=== PATIENT | female | born 1985 | race Caucasian/White ===

== ENCOUNTER 2016-11-24 11:45 | Observation (INO) | payer OTHER ==
--- NOTE | 2016-12-15 07:55 | PDGENHP ---
History and Physical History and Physical: Assessment and Plan: 1. Stress incontinence Sammie has symptomatic stage III prolapse, mostly involving her anterior compartment. She also suffers from stress urinary incontinence as well as menorrhagia from a likely fibroid uterus. I did not have time to perform a pelvic ultrasound today. She will schedule one in radiology next week. We, then wi'll discuss the results. We reviewed all conservative and surgical options. At the end of our discussion, she is interested in surgical correction. This will be a robotic-assisted hysterectomy, uterosacral ligament colpopexy, perineorrhaphy, transobturator sling, and cystoscopy. She also would benefit from a labiaplasty. 2. Intramural leiomyoma of uterus - US PELVIS W ENDOVAG AND DOPPLER; Future 3. Midline cystocele Subjective: Patient ID: Sammie Lindsey is a 31 y.o. female who presents to [facility] for incontinence. HPI Sammei Lindsey presents for a preoperaptive visit. She is scheduled for a robotic hysterectomy, uterosacral ligament colpopexy, mid urethral sling, perineorrhaphy, and labiaplasty. The risks, benefits, and alternatives were presented and informed consent was obtained. 40 minutes of this 40 minute appointment was spent counceling, reviewing the procedure in detail, and discussing the preoperative and postoperative instructions. Below is a copy of our prior visit note. Sammie is a 31-year-old, para [address] Reyna for urinary incontinence. Her first child was born by section. Her second was a vaginal . She developed urinary incontinence after her first delivery which slowly improved after several months. However, after the vaginal , she has continued to leak. Her youngest child is 5 years old. She leaks with laughing, exercise, and jumping. She has tried doing Kegel exercises, but without much success. She has had to stop running and jumping secondary to the leaking. She also has some urinary urgency and urgency incontinence. Occasionally, she has to change positions to empty her bladder more completely. She finds intercourse more uncomfortable. She feels as though the labia minora swell with intercourse and cause pain the following day. She also finds it uncomfortable to wear jeans. Her cycles are fairly regular every month. However, they have become quite heavy , having to change her protection every 1-2 hours. Past Medical History Past Medical History: Diagnosis Date Thyroid disease hypothyroidism Past Surgical History Past Surgical History: Procedure Laterality Date SECTION CURRENT MEDICATIONS: Current Outpatient Prescriptions Medication Sig adapalene (DIFFERIN) 0.3 % gel Cholecalciferol, Vitamin D3, 50,000 unit capsule Take 1 capsule by mouth once a week for 12 doses. No current facility-administered medications for this visit. ALLERGIES: Shellfish derived I have reviewed, verified and agree with the past medical, surgical, , family, social and ROS history as documented by the RN today. Review of Systems Objective: Vital Signs: Visit Vitals BP 98/60 Pulse 81 Temp 36.8 C (98.2 F) Resp 12 Ht 1.626 m (5' 4") Wt 66.7 kg (147 lb) LMP 10/12/2016 SpO2 97% BMI 25.23 kg/m2 Physical Exam Gen: This is an alert, well developed woman in no distress. Neuro: She moves all extremities. Psych: She is appropriate, oriented, with normal affect. Neck: No thyroid enlargement, adenopathy, or tenderness. Lungs: Clear to ascultation, no wheezes or rales. Heart: Regular rate and rhythm without obvious murmurs. Abdomen: Soft, non-tender, without guarding, rebound, or masses. Extremities: No edema or cyanosis. Pelvic: Normal external genitalia. The vagina is without discharge, adequately estrogenized Cervix without lesions or discharge. Adnexa non-tender without enlargement. The introitus is gaping. The uterus is mildly enlarged. She has a third degree cystourethrocele and a second-degree rectocele. The urethra is mobile. She has obvious leakage of urine with strong coughing. TIME/COMMUNICATION: I personally spent a total of 45 minutes. Of that 35 minutes was counseling/ coordination of patient's care. See my note above for details. Cristian Vargas MD Board Certified Female Pelvic Medicine and Reconstructive Surgery Director of Minimally Invasive Gynecologic Surgery, [facility] in Minimally Invasive Gynecologic Surgery Designee
[2016-12-15] MEDS ORDERED: ceFAZolin 2 GM/DEXTROSE 100 ML IV ONE (11:00)
[2016-12-15] MEDS ORDERED: PHENAZOPYRIDINE HCL 200 MG TAB PO ONE (11:00)
[2016-12-15] MEDS ORDERED: LR 1,000 ML IV ONE (11:01)
[2016-12-15] MEDS ORDERED: LIDOCAINE 1% 2 ML INJ ID PRN (11:01)
[2016-12-15] MEDS ORDERED: MIDAZOLAM 2 MG/2 ML VIAL ONE (12:29)
[2016-12-15] MEDS ORDERED: MIDAZOLAM 2 MG/2 ML VIAL IVP ONE (12:30)
--- NOTE | 2016-12-15 12:30 | PDANEPAE ---
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 Past Medical History - Cardiovascular History Hx Hypertension: No Hx Arrhythmias: No Hx Chest Pain: No Hx Coronary Artery / Peripheral Vascular Disease: No Hx CHF / Valvular Disease: No Hx Palpitations: No - Pulmonary History Hx COPD: No Hx Asthma/Reactive Airway Disease: No Hx Recent Upper Respiratory Infection: No Hx Oxygen in Use at Home: No - Neurologic History Hx Cerebrovascular Accident: No Hx Seizures: No Hx Dementia: No - Endocrine History Hx Diabetes: No - Renal History Hx Renal Disorders: Yes - Liver History Hx Hepatic Disorders: No - Neurological & Psychiatric Hx Hx Neurological and Psychiatric Disorders: No - Cancer History Hx Cancer: No - Congenital Disorder History Hx Congenital Disorders: No - GI History Hx Gastrointestinal Disorders: Yes - Chronic Pain History Chronic Pain: No ANE Review of Systems Review of systems is: negative - Exercise capacity METS (RN): 4 METS ANE Patient History - Allergies Allergies/Adverse Reactions: No Known Allergies Allergy (Verified 10/20/16 14:11) - Home Medications Home medications: home medication list seen and reviewed Home Medications: Cholecalciferol Vit D3 [Vitamin D3 (*)] 50,000 unit PO WE 10/18/16 [Last Taken 12/01/16] - NPO status NPO Since - Liquids (Date): 12/15/16 NPO Since - Liquids (Time): 07:45 NPO Since - Solids (Date): 12/04/16 NPO Since - Solids (Time): 23:00 - Anes Hx Anes Hx: no prior problems - Smoking Hx Smoking Status: Never smoked - Alcohol Use Alcohol Use: None - Family Anes Hx Family Anes Hx: none Family Hx Anesthesia Complications: none ANE Labs/Vital Signs - Vital Signs Blood Pressure: 118/83 Heart Rate: 77 Respiratory Rate: 15 O2 Sat (%): 100 Height: 162.56 cm Weight: 65.771 kg ANE Physical Exam - Airway Neck exam: FROM Mallampati Score: Class 2 Mouth exam: normal dental/mouth exam - Pulmonary Pulmonary: no respiratory distress, clear to auscultation - Cardiovascular Cardiovascular: regular rate and rhythym, no murmur, rub, or gallop - ASA Status ASA Status: I ANE Anesthesia Plan Anesthesia Plan: general endotracheal anesthesia
[2016-12-15] MEDS ORDERED: fentaNYL 100 MCG/2 ML INJ ONE ×3 (12:34→15:05)
[2016-12-15] MEDS ORDERED: PROPOFOL 200 MG/20 ML VIAL ONE (12:34)
[2016-12-15] MEDS ORDERED: ROCURONIUM 100 MG/10 ML VIAL ONE (12:36)
[2016-12-15] MEDS ORDERED: ONDANSETRON 4 MG/2 ML VIAL ONE (12:54)
[2016-12-15] MEDS ORDERED: DEXAMETHASONE 4 MG/ML VIAL ONE (12:54)
[2016-12-15] MEDS ORDERED: NALOXONE HCL 0.4 MG/ML INJ IVP PRN (14:10)
[2016-12-15] MEDS ORDERED: ONDANSETRON 4 MG/2 ML VIAL IVP PRN (14:10)
[2016-12-15] MEDS ORDERED: ACETAMINOPHEN 500 MG TAB PO PRN (14:10)
[2016-12-15] MEDS ORDERED: PROMETHAZINE HCL 25 MG/ML INJ IVP PRN ×2 (14:10→15:38)
[2016-12-15] MEDS ORDERED: OXYCODONE/APAP 5/325 TAB PO PRN (14:10)
[2016-12-15] MEDS ORDERED: HYDROmorphONE/DILAUDID 1 MG/ML SYR IVP PRN ×2 (14:10→15:38)
[2016-12-15] MEDS ORDERED: KETOROLAC 30 MG/1 ML SDV ONE (14:35)
[2016-12-15] MEDS ORDERED: SUGAMMADEX SODIUM 200 MG/2 ML VIAL IVP ONE (14:35)
[2016-12-15] MEDS ORDERED: HYDROmorphONE/DILAUDID 2 MG/ML INJ ONE (15:17)
[2016-12-15] MEDS ORDERED: DIAZEPAM 10 MG/2 ML SYR IVP PRN (15:38)
--- NOTE | 2016-12-15 15:38 | POSTOPPROG ---
Post Op Note Date of Operation: 12/15/16 Surgeon: Cristian Vargas Shiftman: Darline Lai Anesthesia: GET(General Endotracheal) Pre-op Diagnosis: Dysmenorrhea, menorrhagia, stress incontinence, rectocele Post-op Diagnosis: Same Procedure: Robotic hyst, rectocele repair, TOT sling, excise endo Findings: Ureters function at end of case Inf/Abcess present in the surg proc area at time of surgery?: No EBL: Minimal Complications: None
[2016-12-15] MEDS ORDERED: LR 1,000 ML IV SCH (16:00)
[2016-12-15] MEDS: fentaNYL 100 MCG/2 ML INJ IVP PRN ×2 (16:03→16:22)
[2016-12-15] MEDS: ONDANSETRON 4 MG/2 ML VIAL IVP PRN ×2 (16:04→20:12)
--- NOTE | 2016-12-15 18:36 | POSTANESTH ---
Post Anesthetic Evaluation Cardiovascular Status: Normal, Stable, Similar to Pre-Op Cond Respiratory Status: Normal, Stable, Similar to Pre-op Cond. Level of Consciousness/Mental Status: Can Participate in Eval, Mildly Sleepy, Arousable Pain Control: Adequate, Prn Tx Ordered Nausea/Vomiting Control: Adequate, Prn Tx Ordered Complications Possibly Related to Anesthesia: None Noted
[2016-12-15] MEDS: KETOROLAC 30 MG/1 ML SDV IVP SCH (19:27)
[2016-12-15] MEDS: OXYCODONE/APAP 5/325 TAB PO PRN (22:56)
[2016-12-15] MEDS: SIMETHICONE 80 MG TAB CHEW PO SCH (22:58)
[2016-12-15 23:06] VITALS: RESP 18
[2016-12-16] MEDS: KETOROLAC 30 MG/1 ML SDV IVP SCH ×3 (01:04→15:33)
[2016-12-16] MEDS: DOCUSATE SODIUM 100 MG CAP PO SCH ×2 (03:55→11:12)
[2016-12-16] MEDS: SIMETHICONE 80 MG TAB CHEW PO SCH ×3 (03:57→14:23)
--- NOTE | 2016-12-16 04:23 | GOP ---
[f rep st] OPERATIVE REPORT DATE OF OPERATION: 12/15/2016 SURGEON: Cristian Vargas MD JEWELRY POLISHER: Darline Lai CFA. ANESTHESIA: General. PREOPERATIVE DIAGNOSIS: 1. Dysmenorrhea. 2. Menorrhagia. 3. Uterine prolapse. 4. Rectocele. 5. Stress urinary incontinence. POSTOPERATIVE DIAGNOSIS: 1. Dysmenorrhea. 2. Menorrhagia. 3. Uterine prolapse. 4. Rectocele. 5. Stress urinary incontinence. 6. Endometriosis. PROCEDURE PERFORMED: 1. Robotic-assisted total laparoscopic hysterectomy and bilateral salpingectomy. 2. Bilateral uterosacral ligament colpopexy. 3. Bilateral ureterolysis. 4. Excision of endometriosis. 5. Rectocele repair. 6. Perineorrhaphy. 7. Transobturator sling. 8. Cystoscopy. 9. Partial vulvectomy. FINDINGS: SPECIMENS: Uterus, cervix, bilateral tubes, and pelvic peritoneum with endometriosis. ESTIMATED BLOOD LOSS: 30 mL. DESCRIPTION OF PROCEDURE: The patient was taken to the operating room, where she was identified. G eneral anesthesia was administered and found to be adequate. She was placed in the lithotomy positi on, and prepared and draped in a normal sterile fashion. A Jain catheter was placed in her bladder . A VCare uterine manipulator was placed into the endometrial cavity and sutured to the cervix. A 1 cm infraumbilical incision was made with a scalpel. The Veress needle with the CO2 gas line was advanced into the peritoneal cavity. The abdomen was then insufflated with carbon dioxide gas. Th e 12 mm trocar, followed by the laparoscope were then inserted. The upper abdomen was unremarkable. Two lateral ports were placed on the right and 1 on the left under direct visualization. She was then placed in Trendelenburg position and the da Anthony robot docked on the left side. The instrumen ts were then brought into the abdominal cavity under direct visualization. The patient was found to have endometriosis in the posterior cul-de-sac as well as both ovarian anni a. These areas were completely excised. To excise the endometriosis in the ovarian fossa, a bilate ral ureterolysis was required. The pelvic peritoneum at the pelvic brims was incised. The ureters were gently dissected free. They were lateralized from the pelvic brims, all the way down to the adder to separate them from the overlying peritoneum and endometriosis. Once this was accomplished, the entire ovarian fossa peritoneum was excised as well as the posterior cul-de-sac peritoneum from the distal rectum all the way up to the cervix and laterally to the uterosacral ligaments. The left fallopian tube was then along the mesosalpinx. The utero-ovarian ligament, follo wed by the round ligament were then cauterized and transected. Anterior leaf of the broad ligament was then incised over the left uterine vessels and across the cervix. The bladder was gently dissec rajat off the cervix and upper vagina. The left uterine vasculature was then cauterized and transecte d. The exact same procedure was performed on the patient's right side. A circumferential colpotomy incision was then made with the hot ciarra, and all specimens were then removed through the vagina. The vaginal cuff was then closed with a running suture of 0 V-Loc 180. A bilateral uterosacral liga ment colpopexy was performed by attaching the lateral aspect of the vaginal cuff to the ipsilateral uterosacral ligaments near their insertion into the coccygeal-sacrospinous ligament complexes. The pelvis was then irrigated with sterile saline and hemostasis was present. The robot was then undock ed. The fascia was closed with 0 Vicryl, the skin with 4-0 Monocryl and surgical adhesive. A midurethral incision was then made with a scalpel. Tunnels were created bilaterally out to the ob turator internus muscles. Skin incisions were made over the obturator notches. The Halo trocar was placed through the left skin incision, redirected around the ischia of pubic rami, and out through the vaginal incision using a vaginal finger as a guide. The lateral sulci were examined and no evid ence of vaginal injury had occurred. The sling was then attached and brought out along the same cou rse. The exact same procedure was performed on the patient's right side. The sling was then adjust ed to allow a small mid urethral gap. The vaginal epithelium was closed with 2-0 Vicryl, skin with 4-0 Monocryl. Cystoscopy was then performed. Both ureters had vigorous jets of urine. There was no evidence of b ladder nor urethral injury seen. No mesh, nor sutures were seen within the bladder, nor urethra. N o obvious pathology was seen. A transverse incision was then made along the perineal body. The posterior vaginal epithelium was u ndermined with the Metzenbaum scissors and incised sagittally. The epithelium was then gently disse cted off the underlying rectovaginal connective tissue. The connective tissue was then plicated in the midline with interrupted sutures of 0 Vicryl. A perineorrhaphy was performed by plicating the b ulbous spongiosis and transverse perineal muscles also in the midline. The excess epithelium was th en trimmed and closed with a running 2-0 Vicryl suture. The labia minora bilaterally were excised. The skin incisions were then closed with a running 4-0 M onocryl in a subcuticular fashion. Vaginal packing was then placed. Anesthesia was reversed. The patient taken to the PACU awake, in stable condition. COMPLICATIONS: None. DISPOSITION: Patient stable to PACU. /[id number]/MODL
[2016-12-16] MEDS: OXYCODONE/APAP 5/325 TAB PO PRN (05:31)
[2016-12-16 05:42] VITALS: O2SAT 99
[2016-12-16 06:11] LABS: HEMATOCRIT 32.7 % (38.0-47.0)
[2016-12-16] MEDS: ONDANSETRON 4 MG/2 ML VIAL IVP PRN (06:39)
[2016-12-16 07:49] VITALS: BP 100/60; PULSE 74; TEMP 97.9
--- NOTE | 2016-12-16 09:26 | SOAPPROG ---
SOAP Progress Note Assessment/Plan: Assessment: Doing well overall, pain controlled, awaiting better voiding. Plan: 12/16/16 09:24 Discharge home today. If not voiding 2/3 of total volume or PVR> 200 ml will replace lawrence before discharge and will repeat bladder trial in office on Tuesday. Otherwise f/u in office in 2 weeks. Subjective: No complaints. Little void so far. Objective: Vital Signs Temp Pulse Resp BP Pulse Ox 36.6 C 74 18 100/60 99 12/16/16 07:48 12/16/16 07:48 12/16/16 05:41 12/16/16 07:48 12/16/16 05:41 Laboratory Results 12/16/16 05:55 12/15/16 12/16/16 12/17/16 05:59 05:59 05:59 Intake Total 300 Output Total 1950 Balance -1650 - Pending Discharge Pending Discharge Within 24 Hours: Yes Pending Discharge Date: 12/17/16 Pending Discharge Time: 11:00 Physical Exam - Physical Exam General Appearance: WD/WN, alert, no apparent distress Respiratory: lungs clear Cardiac/Chest: regular rate, rhythm Abdomen: normal bowel sounds, non-tender, soft (Incisions clean, dry, and intact.) ICD10 Worksheet Patient Problems: Problems Problem Status Onset Endometriosis of pelvic peritoneum Acute Overflow stress urinary incontinence in female Acute - ICD10 Problem Qualifiers (1) Endometriosis of pelvic peritoneum (2) Overflow stress urinary incontinence in female
[2016-12-16] MEDS: HYDROCODONE/APAP 5/325 TAB PO PRN ×2 (11:51→15:18)
--- NOTE | 2016-12-19 04:51 | GDS ---
[f rep st] DISCHARGE SUMMARY DISCHARGE DIAGNOSES: 1. Uterine fibroids. 2. Stress urinary incontinence. 3. Cystocele. 4. Dysmenorrhea. 5. Endometriosis. PROCEDURES: 1. Robotic-assisted total laparoscopic hysterectomy, bilateral salpingectomy. 2. Bilateral ureterolysis. 3. Uterosacral ligament colpopexy. 4. Excision of endometriosis. 5. Rectocele repair and perineorrhaphy. 6. Transobturator sling. 7. Cystoscopy. 8. Partial vulvectomy. HISTORY: The patient is a 31-year-old female with heavy and painful menses, as well as stress incon tinence and symptomatic prolapse. She was taken to the operating room on 12/16/2016, where she unde rwent the above-mentioned procedures without complications. Her postoperative course was relatively uneventful. The morning after surgery, she was ambulating, voiding, and tolerating a general diet. She was discharged home on postoperative day #1 in good condition. Medications included [place] and ibuprofen for pain. She was to follow up in the office 2 weeks after discharge. /[id number]/MODL
== END 2016-12-16 15:50 | disposition home or self-care (01) ==
LOC: F3E 12-15 10:33 → FOB 12-15 17:27
PROVIDERS: ADMIT Obstetrics & Gynecology; ATTEND Obstetrics & Gynecology
DX: N81.3 Complete uterovaginal prolapse (principal); D25.1 Intramural leiomyoma of uterus; N92.0 Excessive and frequent menstruation with regular cycle; N39.3 Stress incontinence (female) (male); N80.0 Endometriosis of uterus; E03.9 Hypothyroidism, unspecified
CPT/HCPCS: 57250; 57288; 57425; 58571; G0378; C1771; J0690; J1100; J1170; J1885; J2250; J2405; J2704; J3010